=== PATIENT | female | born 1970 | race African-American/Black ===

== ENCOUNTER 2017-03-09 19:34 | Emergency (ER) | payer MEDICAID ==
[~2017-03-09] VITALS: Ht 167.6 cm; Wt 121.0 kg
[~2017-03-09 19:34] MED LIST: DET2 PO; LEVO175T7 PO; NAPR-679 PO
[2017-03-10] MEDS ORDERED: HYDROCODONE/ACETAMINOPHEN 5/325MG TABLET PO ONE (01:15)
[2017-03-10 01:28] VITALS: BP 131/64
== END 2017-03-10 04:03 | disposition home or self-care (01) ==
LOC: ER 19:34
DX: S83.92XA Sprain of unspecified site of left knee, initial encounter (principal); F32.9 Major depressive disorder, single episode, unspecified; E03.9 Hypothyroidism, unspecified; E66.01 Morbid (severe) obesity due to excess calories; F17.200 Nicotine dependence, unspecified, uncomplicated; W18.39XA Other fall on same level, initial encounter; Y93.89 Activity, other specified; Y92.89 Other specified places as the place of occurrence of the external cause; Y99.8 Other external cause status
CPT/HCPCS: 73562; 99284; L1830

== ENCOUNTER 2018-12-04 14:25 | Emergency (ER) | payer MEDICARE, MEDICAID ==
[~2018-12-04] VITALS: Ht 165.1 cm; Wt 112.0 kg
[2018-12-04 14:33] VITALS: BP 106/75
[2018-12-04 15:41] LABS: CLARITY URINE TURBID (CLEAR); COLOR URINE DARK YELLOW (YELLOW); KETONES URINE TRACE (NEGATIVE); LEUKOCYTE ESTERASE URINE 3+ (NEGATIVE); NITRITE URINE NEGATIVE (NEGATIVE); OCCULT BLOOD URINE 3+ (NEGATIVE); PH URINE 5.5 (4.5-8.0); PROTEIN URINE 1+ (NEGATIVE); SPECIFIC GRAVITY URINE 1.026 (1.005-1.030)
== END 2018-12-04 16:03 | disposition home or self-care (01) ==
LOC: ER 14:25
DX: N39.0 Urinary tract infection, site not specified (principal); F32.9 Major depressive disorder, single episode, unspecified; M19.90 Unspecified osteoarthritis, unspecified site; E03.9 Hypothyroidism, unspecified
CPT/HCPCS: 87077; 87186; 99283

== ENCOUNTER 2025-07-21 15:10 | Emergency (ER) | payer OTHER, MEDICARE, MEDICAID ==
[~2025-07-21] VITALS: Ht 162.6 cm; Wt 91.0 kg
[2025-07-21 15:15] VITALS: O2SAT 100
[2025-07-21] MEDS ORDERED: NAPR-677 MT (17:48)
[2025-07-21] MEDS: KETOROLAC 15MG/ML VIAL IM ONE (18:04)
[2025-07-21 18:06] VITALS: BP 142/87; PULSE 82; RESP 18; TEMP 37; O2SAT 100
== END 2025-07-21 18:11 | disposition home or self-care (01) ==
LOC: ER 15:10
DX: S93.402A Sprain of unspecified ligament of left ankle, initial encounter (principal); F32.A Depression, unspecified; E03.9 Hypothyroidism, unspecified; M19.90 Unspecified osteoarthritis, unspecified site; Z79.1 Long term (current) use of non-steroidal anti-inflammatories (NSAID); Z79.890 Hormone replacement therapy; Z79.899 Other long term (current) drug therapy; V89.2XXA Person injured in unspecified motor-vehicle accident, traffic, initial encounter; Y93.89 Activity, other specified; Y92.89 Other specified places as the place of occurrence of the external cause; Y99.8 Other external cause status
CPT/HCPCS: 99283; 73630; 96372; J1885